=== PATIENT | female | born 2000 | race Caucasian/White ===

== ENCOUNTER 2024-05-21 18:14 | Emergency (ER) | payer OTHER, SELFPAY ==
--- NOTE | ~2024-05-21 | XR_ITS ---
HISTORY: dropped 45lb weight on toe COMPARISON: None TECHNIQUE: 4 views of the great toe FINDINGS: No acute or subacute fracture, erosion, lytic or sclerotic lesion. Joint spaces are preserved and alignment is unremarkable. Moderate soft tissue swelling Normal mineralization. IMPRESSION: Soft tissue swelling, without acute fracture Reviewed, dictated and finalized at location A.
[2024-05-21 18:42] VITALS: BP 123/84; PULSE 91; RESP 18; TEMP 36.9; O2SAT 100
[2024-05-21 18:50] VITALS: BP 123/84; PULSE 91; RESP 18; TEMP 36.9; O2SAT 100
--- NOTE | 2024-05-21 19:42 | ED.LOWEXIN ---
HPI - Extremity Injury (Lower) General Chief Complaint: Extremity Injury, Lower Stated Complaint: lt foot injury Time Seen by Provider: 05/21/24 18:48 Source: patient, RN notes reviewed and old records reviewed Mode of arrival: ambulatory Limitations: no limitations History of Present Illness HPI Narrative: 23-year-old female to [facility] with complaint of left great toe pain. Patient states approximately 30 minutes prior to arrival she accidentally dropped a 45 lb weight directly on to her toe. Patient denies tingling, numbness, prior injury. Limited ROM due to discomfort. Patient resting in exam room in no acute distress. Related Data Home Medications Medication Instructions Recorded Confirmed erenumab-aooe 140 mg/mL 140 mg subcut MONTHLY 05/21/24 05/21/24 subcutaneous auto-injector (Aimovig Autoinjector) norethindrone 1.5 mg-ethinyl 1 tablet PO DAILY 05/21/24 05/21/24 estradiol 30 mcg(21)/iron 75 mg(7) tablet (Kenny Fe 1.5/30 (28)) sumatriptan succinate 100 mg tablet 100 mg PO DAILY PRN MIGRAINES 05/21/24 05/21/24 Allergies Allergy/AdvReac Type Severity Reaction Status Date / Time No Known Allergies Allergy Verified 05/21/24 18:50 Review of Systems Review of Systems: All systems reviewed & are unremarkable except as noted in HPI and below Constitutional: Constitutional: Reports no additional constitutional complaints Eyes: Eyes: Reports no additional eye complaints ENT: Reports system reviewed and no additional complaints, except as documented Cardiovascular: Cardiovascular: Reports no additional cardiovascular complaints, Denies chest pain and Denies dyspnea Respiratory: Respiratory: Reports no additional respiratory complaints, Denies cough and Denies dyspnea Musculoskeletal: Musculoskeletal: Reports as per HPI and Reports other ( Left great toe pain) Neurologic: Reports system reviewed and no additional complaints, except as documented Psychiatric: Psychiatric: Reports no additional psychiatric complaints PMFSH Comments At the time of my signature, I reviewed and agree with the nursing past medical, surgical, social, and family history. There is no relevant family history pertinent to the patient complaint. Exam Const: General: cooperative, healthy appearing, no acute distress, alert, uncomfortable and well nourished Nutritional Appearance: well nourished Orientation/consciousness: patient oriented x3 Limitations: no limitations HENMT: Head: normal to inspection Ears: external ears normal Face/Nose/Sinus: Normal external nose present, Normal nares present, normal facial exam, No erythema and No edema Face and sinus: normal facial exam, no erythema and no edema Mouth: Yes Normal oral and palatal mucosa present Eyes: General: appearance normal, both eyes and all related structures Neck: Neck: normal visual inspection, full ROM and no meningeal signs Lymphatic: no lymphadenopathy noted and no lymphedema noted Chest: Chest palpation & inspection: normal inspection of the chest Resp: Effort & Inspection: normal respiratory effort and able to speak in complete sentences Auscultation: clear to auscultation bilaterally Cardio: Jugular venous distension: no JVD Rate: regular rate Rhythm: regular rhythm Back/Spine/Pelvis: Cervical Spine: cervical ROM normal Skin: General skin exam: normal color, no rashes or lesions noted and turgor normal Neuro: General: patient oriented x3, No gait normal, moves all extremities and no meningeal signs Speech: normal speech Gait exam (Neuro): gait abnormal Extrem: General: capillary refill normal Left lower extremity: foot Details: normal capillary refill and tenderness Location: of the great toe Location: along the dorsal aspect Psych: Appearance: grossly normal and well kempt Course Course Emergency Course: Some parts of this dictation were generated by voice recognition software and may contain typographical and/or grammatical inac
== END 2024-05-21 19:44 | disposition home or self-care (01) ==
PROVIDERS: Emergency Provider Nurse Practitioner Family
DX: S90.112A Contusion of left great toe without damage to nail, initial encounter (principal); W20.8XXA Other cause of strike by thrown, projected or falling object, initial encounter
CPT/HCPCS: 73660; 99213; G0463